=== PATIENT | female | born 1995 | race Caucasian/White ===

== ENCOUNTER 2018-12-09 15:27 | Emergency (ER) | payer OTHER ==
[~2018-12-09] VITALS: Ht 154.9 cm; Wt 61.2 kg
[2018-12-09 15:40] VITALS: BP_SYST 128
--- NOTE | 2018-12-09 15:49 | NUR ---
Patient to ER bed 01 for evaluation. Side rails up.
[2018-12-09] MEDS ORDERED: IBUPROFEN 600 MG TABLET ONE (17:13)
[2018-12-09] MEDS ORDERED: BACITRACIN 1 GM OINT TP ONE (17:28)
== END 2018-12-09 17:30 | disposition home or self-care (01) ==
LOC: SED 15:27
DX: S61.101A Unspecified open wound of right thumb with damage to nail, initial encounter (principal); W23.0XXA Caught, crushed, jammed, or pinched between moving objects, initial encounter; Y93.89 Activity, other specified; Y92.89 Other specified places as the place of occurrence of the external cause; Y99.8 Other external cause status
CPT/HCPCS: 73140-TC; 99283